=== PATIENT | male | born 1965 | race Hispanic/Latino ===

== ENCOUNTER 2019-04-18 07:24 | Outpatient (CLI) | payer OTHER ==
--- NOTE | 2019-04-18 09:03 | ULT ---
US Testicular W Doppler History: N50.0 testicular atrophy Comparison: None. Findings: Real-time grayscale, color, and spectral analysis of the testicles was performed. There is asymmetric size decreased right testicle relative to the left. The right testicle measures 2 .6 x 2.6 x 1.4 cm and the left testicle measures 3.4 x 3.8 x 2.1 cm. Echotexture is normal. Vascularity is normal. No mass. Small bilateral epididymal cysts. Small left hydrocele. Impression: Mild asymmetric atrophy right testicle relative to the left. Adequate vascular flow to kerline th testicles and no mass.
== END 2019-04-18 07:25 | disposition home or self-care (01) ==
LOC: SCSULT 07:24
PROVIDERS: ATTEND Urology
DX: N50.0 Atrophy of testis (principal); N43.40 Spermatocele of epididymis, unspecified
CPT/HCPCS: 76870; 93976

== ENCOUNTER 2020-11-17 09:08 | Emergency (ER) | payer SELFPAY ==
[~2020-11-17 09:08] MED LIST: Iopamidol-370 76% 500 ML 1 ML ONE
[2020-11-17] MEDS ORDERED: Ketorolac Tromethamine 30 MG/ML VIAL ONE (11:09)
[2020-11-17] MEDS ORDERED: Dexamethasone 10 MG/ML VIAL ONE (11:09)
[2020-11-17] MEDS ORDERED: Albuterol 200 PUFF (6.7GM INHALER) ONE (11:09)
[2020-11-17 11:28] LABS: Hemoglobin 12.8 g/dL (14.0-18.0); Mean Corpuscular HGB CONC 32.1 g/dL (32.0-36.0); Mean Corpuscular Hemoglobin 29.2 pg (27.0-31.0); Mean Corpuscular Volume 90.7 fL (78.0-98.0); Mean Platelet Volume 7.8 fL (7.4-10.4); Platelet Count 269 thou/uL (130-400); RBC Distribution Width 12.6 % (11.5-14.5); White Blood Cell (WBC) Count 9.4 thou/uL (4.8-10.8)
[2020-11-17 11:46] LABS: ALT (SGPT) 144 U/L (8-55); AST (SGOT) 100 U/L (5-34); Albumin 3.3 g/dL (3.5-5.0); Alkaline Phosphatase 245 U/L (40-110); Anion Gap 16 mmol/L (10-20); BUN (Urea Nitrogen) 13 mg/dL (8.4-25.7); Bilirubin, Total 0.3 mg/dL (0.2-1.2); Calc. Creatinine Clearance 0 mL/min (70-130); Carbon Dioxide 23 mmol/L (22-29); Chloride 101 mmol/L (98-107); Glucose 106 mg/dL (70-105); Protein, Total 7.3 g/dL (6.0-8.3); Sodium 136 mmol/L (136-145)
[2020-11-17 11:50] LABS: Band 8 % (5-11); Eosinophils 3 % (0-10); Lymphocytes 12 % (21-51); MDiff Complete? YES; Metamyelocyte 1 % (0-0); Monocytes 5 % (0-10); Neutrophil 68 % (42-75); Platelet Morphology Comment Appears Adequate; RBC Morphology Normal; Reactive Lymphocytes 3 % (0-10)
== END 2020-11-17 13:55 | disposition home or self-care (01) ==
LOC: ERS 09:08
DX: U07.1 COVID-19 (principal); J12.82 Pneumonia due to coronavirus disease 2019; I10 Essential (primary) hypertension
CPT/HCPCS: 36415; 71045; 71275; 80053; 84484; 85025; 85379; 93005; 96374; 96375; J1100; J1885; Q9967

== ENCOUNTER 2020-12-21 09:55 | Outpatient (CLI) | payer OTHER | END 2020-12-21 09:56 | disposition home or self-care (01) | LOC: BICRAD 09:55 | PROVIDERS: ATTEND Family Medicine | DX: Z00.00 Encounter for general adult medical examination without abnormal findings (principal); J98.4 Other disorders of lung | CPT/HCPCS: 71046 ==

== ENCOUNTER 2024-08-20 15:32 | Outpatient (CLI) | payer OTHER | END 2024-08-20 15:33 | disposition home or self-care (01) | LOC: BICRAD 15:32 | PROVIDERS: ATTEND Nurse Practitioner Family | DX: M25.562 Pain in left knee (principal); M17.12 Unilateral primary osteoarthritis, left knee ==